=== PATIENT | female | born 1995 | race Caucasian/White ===

== ENCOUNTER 2023-06-20 18:10 | Inpatient (IN) | payer BC, SELFPAY ==
[2023-06-20] VITALS (32 sets, daily range): BP systolic 111–136; BP diastolic 59–86; PULSE 74–129; TEMP 36.7–36.9; O2SAT 97–99; BMI 22.2
[2023-06-20] MEDS: LACTATED RINGERS 1000 ML 1,000 ML IV (18:18)
--- NOTE | 2023-06-20 18:27 | PM.OBHPLI ---
OB - H&P: HPI Labor/Induction History of Present Illness Date Seen: 06/20/23 Chief Complaint: The patient is a 27 year old 2 para 1 at 39+1 weeks gestation by LMP and confirmed with 1st trimester US, who presents with painful regular contractions. Chief complaint: Maternity Narrative: Bronson Fraire is a 27 year old at 39+1 based on LMP and confirmed with 1st trimester US here with regular painful contractions starting at 1530 this afternoon. They are now every 3-4 minutes. Her has been uncomplicated. History of Present Dating criteria: based on LMP care: good care Ultrasounds: normal 1st trimester US and normal mid trimester US Medical complications: none Labs Blood type: O (+) positive Rubella: immune RPR/VDLR: nonreactive GBS status: negative HBsAG: negative Review of Systems Status of ROS: Reports: 6 or more systems reviewed and unremarkable except as noted in History and below Meds Home Medications and Allergies Home Medication Comments: vitamins Allergies Allergy/AdvReac Type Severity Reaction Status Date / Time No Known Drug Allergies Allergy Verified 06/20/23 18:31 OB - H&P: Exam Constitutional: Constitutional: no acute distress Routine HEENT Exam: Head: Present atraumatic Eye: Present EOMI, normal appearance and PERRL ENT: Present mucous membranes moist Routine Neck Exam: Neck: Present full ROM Routine Respiratory Exam: Respiratory: Present CTA bilaterally Routine Cardiovascular Exam: Cardiovascular: RRR Comments: no murmur Routine Exam: Perineum Description: Normal Detailed Labor and Delivery Exam: Patient Gravid: Yes Dilation (cm): 5 Effacement (%): 100 Cervix position: mid Consistency: soft Contraction frequency (min): 3 Tachysystole: No Fetus (Single): Station: -1 Amniotic Membrane Status: intact Heart Rate Baseline: 145 Monitor Accelerations: Present Monitor Decelerations: None [employer] Variability: Moderate (6-25) Routine Extremities Exam: Extremities: Present full ROM and normal inspection Routine Skin Exam: Present intact Routine Neurological Exam: Present alert and oriented X3 OB - Problem Based A/P Additional Plan (1) Term : Status: Acute (2) Active labor at term: Status: Acute Plan Epidural per patient request. Delivery/Labor/Induction Plan Plan: expectant management
[2023-06-20 18:57] LABS: Basophils Percent Auto 0.2 % (0.0-3.0); Eosinophils Percent Auto 0.4 % (0.0-7.0); Hemoglobin* 12.7 gm/dL (12.0-16.0); Mean Corpuscular HGB Conc 34 gm/dL (32-36); Mean Corpuscular Hemoglobin 30 pg (26-34); Mean Corpuscular Volume 88 fL (80-100); Neutrophils Percent Auto 72.3 % (42.0-72.0); Platelet Count* 203 K/uL (140-440); RDW Coefficient of Variation % 11.7 % (11.5-15.5); Red Blood Count 4.21 m/uL (4.00-5.20); White Blood Count* 9.71 K/uL (4.50-11.00)
[2023-06-20 18:58] LABS: Basophils Absolute Auto 0.02 K/uL (0.00-0.30); Eosinophils Absolute Auto 0.04 K/uL (0.00-0.50); Immature Granulocytes Abs Auto 0.01 K/uL (0.00-0.30); Immature Granulocytes Pct Auto 0.1 %; Lymphocytes Absolute Auto 2.04 K/uL (0.90-2.90)
[2023-06-20] MEDS: LIDOCAINE 2% (PF) 5 ML VIAL EPIDURAL (19:01)
[2023-06-20 19:06] LABS: Slide Review Reflex No
[2023-06-20] MEDS: ROPIVACAINE 0.2% 100 ml 100 ML 12 MG EPIDURAL (19:07)
--- NOTE | 2023-06-20 19:12 | PM.ANBPRC ---
[facility] Social History What is your current living situation?: I presently have a place to live Problems where you live: no known problems In the past 12 months, utilities in danger of being shut off: no In the past 12 mos, have been you worried that your food would run out before you had money to buy more?: never true In the past 12 mos, the food you bought just didn't last and you didn't have money to buy more?: never true Smoking Status: Former smoker How often does anyone, including family, friends and others, physically hurt you: never How often does anyone, including family, friends and others, insult or talk down to you: never How often does anyone, including family, friends and others, threaten you with harm: never How often does anyone, including family, friends and others, scream or curse at you: never Meds Home Medications and Allergies Home Medications Medication Instructions Recorded Confirmed Type vit no.95-ferrous 1 tab PO DAILY 06/20/23 06/20/23 History fumarate 28 mg-folic acid 800 mcg tablet () Allergies Allergy/AdvReac Type Severity Reaction Status Date / Time No Known Drug Allergies Allergy Verified 06/20/23 18:43 Results Labs Labs: Laboratory Results - last 24 hr 06/20/23 18:30 WBC 9.71 RBC 4.21 Hgb 12.7 Hct 37.0 MCV 88 MCH 30 MCHC 34 RDW Coeff of Benedict 11.7 Plt Count 203 Neut % (Auto) 72.3 H Lymph % (Auto) 21.0 [place] % (Auto) 6.0 Eos % (Auto) 0.4 Baso % (Auto) 0.2 Neut # (Auto) 7.00 Lymph # (Auto) 2.04 [place] # (Auto) 0.60 Eos # (Auto) 0.04 Baso # (Auto) 0.02 Abs Immat Gran (auto) 0.01 Imm/Tot Granulo (auto) 0.1 Vital Signs Vital Signs: Last Vital Signs Pulse 85 06/20/23 19:10 BP 128/71 06/20/23 19:10 Pulse Ox 97 06/20/23 19:01 Weight: 62.46 kg Height: 167.64 cm Anesthesia Procedures Epidural Insertion Patient Location: OB Start Time: 18:55 Stop Time: 19:35 Start Date: 06/20/23 Stop Date: 06/20/23 Reason for Block: primary anesthetic Patient Position: sitting Performed By: Papito Lees Preanesthetic Checklist: IV checked, risks and benefits discussed, surgical consent, monitors and equipment checked, pre-op evaluation, timeout performed and anesthesia consent Prep: chlorhexidine gluconate Monitoring: blood pressure monitoring, rn cardiac, continuous pulse oximetry and heart rate Approach: midline Vertebral Space: lumbar (1-5) Needle Type: Tuohy needle Injection Technique: continuous catheter (catheter) Needle gauge: 17 Needle Length (cm): 10 cm Needle Insertion Depth (cm): 4 Catheter Gauge: 19 Catheter Type: multi-orifice Catheter at skin depth (cm): 9 Test Dose Result: negative and lidocaine 1.5% with epinephrine 1 to 200,000
[2023-06-20] MEDS: LACTATED RINGERS 1000 ML 1,000 ML 125 ML IV (19:18)
[2023-06-20] MEDS: OXYTOCIN 30 unit/500 ML in NS 30 UNIT/500 ML BAG 300 UNIT IVPB (20:06)
--- NOTE | 2023-06-20 20:17 | W.PM.VAGD1_ITS ---
Procedure Delivery date: 06/20/23 Procedure Done: Global Delivery augmentation: rupture of membranes Delivery monitor: external FHT and external uterine Route of delivery: Laceration description: None Anesthesia type: Epidural Disposition: floor Narrative: The patient is a 27 year-old admitted on 06/20/2023 at 39 Weeks, 1 Days ges tation for active labor.? Cervical exam on admission was 5 cm/100 % effaced/0 station with membranes intact in vertex presentation.? Contractions were every 3-4 minutes.? heart rate demonstrated baseline 145 bpm with moderate variability, + accelerations, - decelerations; a category 1 tracing.? After epidural placed, AROM occurred at 1929 with clear fluid. ? Labor Analgesia:? epidural ? Pitocin:? post delivery ? Labor onset:? 1529 ? Complete:? 1958 ? Pushing:? 1958 ? heart tones during second stage were category 1. ? At 2002 a viable male delivered in vertex OA presentation over intact perineum via spontaneous vaginal delivery.? Infant was placed on maternal abdomen.? Cord was clamped and cut after a 30-60 second delay.? Nose and mouth were bulb suctioned.? Infant weight pending.? 8 at 1 minute and 9 at 5 minutes.? Shoulder dystocia: no.? Nuchal cord: yes x2. ? Placenta delivered spontaneously and complete at 2005 with a 3 vessel cord. ? Mother and were stable after delivery. ? Lacerations:? none. ? Blood loss: 150 mL. Blood loss measurement type: QBL ? Sponge and needles counts are correct. Infant Gender: Male presentation: vertex Placental Delivery Description: Spontaneous Cord Description: 3 Vessels and Nuchal Cord (x2)
[2023-06-21 01:43] VITALS: BP 114/69; PULSE 87; RESP 16; TEMP 36.9; O2SAT 94
[2023-06-21] MEDS: ACETAMINOPHEN 500 MG TABLET 1000 MG PO ×3 (04:49→19:45)
[2023-06-21 04:54] VITALS: BP 111/79; PULSE 67; RESP 16; TEMP 36.5; O2SAT 97
[2023-06-21 06:40] LABS: Hemoglobin* 11.7 gm/dL (12.0-16.0)
[2023-06-21 07:39] VITALS: BP 110/70; PULSE 74; RESP 16; TEMP 36.9; O2SAT 97
--- NOTE | 2023-06-21 08:35 | PM.OBPNVD1 ---
OB - PN:Subj Subjective Date Seen: 06/21/23 Patient comments OB post-: no complaints [place] status: and doing well OB - PN: Obj Exam Physical Exam: Vital signs: Temp Pulse Resp BP Pulse Ox O2 Del Method 98.5 F 74 16 110/70 97 Room Air 06/21/23 07:39 06/21/23 07:39 06/21/23 07:39 06/21/23 07:39 06/21/23 07:39 06/21/23 07:39 Constitutional: Constitutional: no acute distress Routine Abdominal Exam: Abdominal: Absent tenderness Fundus: Present firm OB - PN: Obj Data Labs Labs: Laboratory Results - last 24 hr 06/20/23 06/21/23 18:30 06:13 WBC 9.71 RBC 4.21 Hgb 12.7 11.7 L Hct 37.0 MCV 88 MCH 30 MCHC 34 RDW Coeff of Benedict 11.7 Plt Count 203 Neut % (Auto) 72.3 H Lymph % (Auto) 21.0 [place] % (Auto) 6.0 Eos % (Auto) 0.4 Baso % (Auto) 0.2 Neut # (Auto) 7.00 Lymph # (Auto) 2.04 [place] # (Auto) 0.60 Eos # (Auto) 0.04 Baso # (Auto) 0.02 Abs Immat Gran (auto) 0.01 Imm/Tot Granulo (auto) 0.1 Blood Type O Positive Antibody Screen NEGATIVE OB - PN: A/P Delivery Assessment and Plan (1) Term : Status: Resolved (2) Active labor at term: Status: Resolved Plan day: 1 Plan: routine care
[2023-06-21] MEDS: DOCUSATE SODIUM 100 MG CAPSULE PO (08:47)
[2023-06-21 12:19] VITALS: BP 113/72; PULSE 94; RESP 16
[2023-06-21 15:20] VITALS: BP 121/79; PULSE 71; RESP 16; TEMP 36.4; O2SAT 98
[2023-06-21 20:30] VITALS: BP 104/65; PULSE 72; RESP 16; TEMP 36.8; O2SAT 94
[2023-06-22 01:02] VITALS: BP 100/64; PULSE 68; RESP 18; TEMP 36.4; O2SAT 94
--- NOTE | 2023-06-22 07:43 | P.DS_ITS ---
DS: Providers Provider Date Seen: 06/22/23 Date of admission: 06/20/23 18:10 Primary care physician: Karen Cole MD Admitting Clinician: Karen Cole MD Attending Physician on discharge: Karen Cole MD Date of Discharge: 06/22/23 DS: Diagnosis Discharge Diagnosis (1) Vaginal delivery: Status: Acute (2) Term : Status: Resolved Exam Const: Vital Signs, click to edit/add: Vital Signs - 24 hr 06/21/23 12:19 06/21/23 15:20 06/21/23 20:30 Temperature 97.5 F L 98.2 F Pulse Rate [Pulse Oximeter] 94 71 72 Respiratory Rate 16 16 16 Blood Pressure [Le ft Arm] 113/72 121/79 104/65 Pulse Oximetry 98 94 Oxygen Delivery Me thod Room Air Room Air Room Air 06/22/23 01:02 Temperature 97.6 F Pulse Rate [Pulse Oximeter] 68 Respiratory Rate 18 Blood Pressure [Le ft Arm] 100/64 Pulse Oximetry 94 Oxygen Delivery Me thod Room Air Documenting provider has reviewed patient's vital signs: yes Common normals: no apparent distress GI: Common normals: Normal to inspection, nondistended, normoactive bowel sounds present and soft to palpation Palpation: soft Other: uterus firm at umbilicus Extremity: Common normals: normal to inspection and no pedal edema OB - DS: Summary Hospital Course Hospital Course: The patient is a 27 year old G 2 P 2 at +1 weeks gestation that was admitted to the [facility] on 06/20/23 for active labor. She had an uncomplicated vaginal delivery. She delivered a viable male . She is breast feeding. the patient has done well. Peripartum Data Infant delivery method: Vaginal Laceration description: None complications: none [place] Infant Gender: Male Discharge Plan: Home Status at Discharge Functional status at discharge: independent ambulation Overall status at discharge: patient is progressing back to baseline Time Spent with Patient Time attestation: Total time spent providing and/or coordinating discharge services: Time spent: Less than 30 minutes Discharge Plan Discharge Disposition: Home, Self-Care Date of Admission: 06/20/23 18:10 Attending Provider on Discharge: Karen Cole Primary Care Provider: Karen Cole Condition: Improved Anticipated Discharge Date/Time: 06/22/23 07:46 Discharge Medications: Continued PNV cmb#95-ferrous fumarate-FA [] 28 mg iron- 800 mcg tablet 1 tab PO DAILY Discharge Orders: Discharge Order (Routine); Ordered 06/22/23 Ordered By: Karen Cole Patient Education: OB Vaginal/Breast Feeding Activity Level: No Restrictions Activity Detail: nothing per vagina (no intercourse, no tampons) for 6 weeks Discharge Diet: Regular Follow Up Appointments: Karen Cole MD [Primary Care Provider] - Forms: [employer] Info Instructions Discharge Comments: Follow up in 6 weeks for a post check
[2023-06-22 07:52] VITALS: BP 103/68; PULSE 72; RESP 18; TEMP 37.2; O2SAT 95
[2023-06-22] MEDS: ACETAMINOPHEN 500 MG TABLET 1000 MG PO (08:01)
[2023-06-22] MEDS: DOCUSATE SODIUM 100 MG CAPSULE PO (09:00)
== END 2023-06-22 10:00 | disposition home or self-care (01) | DRG 560 ==
LOC: OB OUT 18:49 → OB 18:49
PROVIDERS: Admitting Provider Family Medicine; PCP Family Medicine; Visit Provider Family Medicine
DX: O80 Encounter for full-term uncomplicated delivery (principal); Z3A.39 39 weeks gestation of pregnancy; Z37.0 Single live birth
CPT/HCPCS: 01967; 36415; 85018; 85025; 86850; 86900; 86901; A9270; J2795; J7120

== ENCOUNTER 2023-07-11 13:01 | Outpatient (CLI) | payer BC, SELFPAY ==
--- NOTE | 2023-07-11 17:00 | P.LACCB_ITS ---
Consult Note - Mom Date of Visit Date of visit: 07/11/23 search engine optimization consultant: Suzy Sotomayor Visit Code: Visit Patient's Information Phone number: [phone] : 2 Para: 2 Allergies No Known Drug Allergies Allergy (Verified 06/20/23 18:43) Work Plans: Returns to work in September Delivery Information Delivery type: Vaginal Weeks Gestation: 39.1 Gestational Age: AGA Weight: 3.203 kg Discharge Weight: 3.03 kg Baby's Information Baby's Age at Visit: 3 weeks Baby's Provider or Clinic: Dr. Cole Jaundice: No Reason for Consult Reason for Consult: concern for tongue tie Past Experience Past Experience: Yes (nursed her older child x 1 year) Current Frequency of Day Feedings: every 2 - 3 hours, cluster feeds Frequency of Night Feedings: every 1 - 2 hours, cluster feeds Both Breasts: No Suck: strong Latch: fairly wide Length of Time: 2 - 3 minutes Pumping Pumping: Yes (only once) Supplementing EMB Supplement: Yes (dad has given one bottle of EBM) Formula Supplement: No Baby Elimination Number of Wet Diapers a Day: every feeding Number of BM a Day: almost every feeding, yellow and seedyyyy Breast/Nipple Condition Breast Information: WNL Maternal Nipple Condition - Left: Common Nipple Maternal Nipple Condition - Right: Common Nipple Sore Nipples: No Onsite Pre-Feed weight: 3.888 kg Post-Feed weight: 3.994 kg Milk Transferred (mL): 106 Assessments/Interventions Assessments/Interventions: Met with mom and this now 3 week old ex- term AGA baby for consult. Mom reports concern for a possible tongue tie, also reports baby has a lot of gas and is often uncomfortable. Baby is nursing every 1 - 3 hours around the clock and will cluster feed in the late morning as well as in the evening. She usually only offers one side and states baby only nurses for a few minutes. Reports she has a fast flow and sometimes he pops off the breast and seems to need to catch his breath. She uses her Haakaa on occasion and dad has given baby a bottle of EBM once. Breasts WNL- symmetrical with rounded lower quadrants, intramammary distance < 1.5 inches. Nipples are everted and don't flatten or retract on compression, no damage noted. Baby had a [address] Cole, but I forgot to ask what his weight was at that visit. At this visit baby is 23 oz above BW at 3 weeks old. Mom denies any caput/cephalohematoma at delivery and states he has equal ROM when turning his head or moving his extremities. His palate is a little high, his upper frenulum is a little tight as it's difficult to flange his lips and his gums rj. He has a strong suck on a finger and the tongue easily extends over the gum line. There's some canoeing of the tongue when lateralizing and the tip is a little heart shaped when baby raises it. The lower frenulum may be a little anterior. Mom latched baby to the left side and he had a deep latch, she was comfortable. At this feeding he did not have trouble maintaining the latch and nursed for about 10 minutes. He was weighed and had transferred 100 ml. Mom offered the left side and he didn't have as deep of a latch and did come off and on a few times. It wasn't really d/t her flow however, it was more like he wasn't hungry. After a few attempts he was weighed again and had transferred another 6 ml for a total of 106 ml. Reviewed with mom that what she is describing seems more like baby has trouble with her flow than a possible tongue tie. Plan: 1. Continue nursing ALD but suggested she try hand expressing/using her Haakaa for a few minutes before nursing; could also try nursing in a more reclined or side lying position. This may slow the flow and help baby to maintain a deep latch. Also suggested she offer both sides at each feeding as it may help baby to sleep a little longer between feedings and give her a little more of a break. Suggested she keep baby upright for 15 minutes after nursing to help with gas. 2. No medical need to supplement, but dad could re-introduce a bottle and give it every few days so baby stays accustomed to it. 3. No need to pump regularly- only for the supplement dad gives and could also use anything she gets from hand expression or the Haakaa. 4. Reviewed correct dose of vitamin D and gave mom handout on [facility] [employer] [facility] in [place]. 5. If becomes more difficult/painful or baby seems to be having a difficult time, could consider a pediatric dental referral. 6. Will f/u with PCP for a 2 month WCC and in prn. Meds Home Medications and Allergies Home Medications Medication Instructions Recorded Confirmed Type vit no.95-ferrous 1 tab PO DAILY 06/20/23 06/20/23 History fumarate 28 mg-folic acid 800 mcg tablet () Allergies Allergy/AdvReac Type Severity Reaction Status Date / Time No Known Drug Allergies Allergy Verified 06/20/23 18:43
== END 2023-07-11 13:02 | disposition home or self-care (01) ==
PROVIDERS: PCP Family Medicine; Visit Provider Family Medicine
DX: Z39.1 Encounter for care and examination of lactating mother (principal)
CPT/HCPCS: 99211